=== PATIENT | male | born 1975 | race Caucasian/White ===

== ENCOUNTER 2025-02-21 16:58 | Emergency (ER) | payer OTHER, MEDICAID ==
[~2025-02-21] VITALS: Ht 182.9 cm; Wt 101.4 kg
[2025-02-21] MEDS ORDERED: ASPIRIN 81 MG CHEW PO ONE (17:15)
[2025-02-21] MEDS ORDERED: NITROGLYCERIN 0.4 MG SUBL SL PRN (17:15)
[2025-02-21 17:20] LABS: BASOPHILS 0.6 % (0.2-1.2); EOSINOPHILS 1.6 % (0.8-7.0); LYMPHOCYTES 24.0 % (21.8-53.1); MCH 27.5 PG (25.7-32.2); MCHC 32.7 g/dL (32.3-36.5); MCV 84.3 fL (79.0-92.2); MONOCYTES 8.3 % (5.3-12.2); NEUTROPHILS 65.2 % (34.0-67.9); RBC 5.59 M/uL (4.63-6.08)
[2025-02-21 17:39] LABS: ALT (SGPT) 41 U/L (14-59); AST (SGOT) 14 U/L (15-37); GLOMERULAR FILTRATION RATE,EST 113 mL/min (>60); PROTEIN, TOTAL 7.6 g/dL (6.4-8.2); UREA NITROGEN 12 mg/dL (7-18)
[2025-02-21 19:15] LABS: BLOOD/HGB, URINE NEGATIVE (Negative); KETONE, URINE NEGATIVE (Negative); LEUK ESTERASE, URINE NEGATIVE (negative); NITRITE, URINE NEGATIVE (negative)
[2025-02-21] MEDS ORDERED: FAMOTIDINE 20 MG TAB PO ONE (19:15)
[2025-02-21] MEDS ORDERED: HYDROXYZINE HCL25 MG PO ×2 (19:31→19:38)
[2025-02-21] MEDS ORDERED: PEPCID20 MG PO ×2 (19:31→19:38)
[2025-02-21] MEDS ORDERED: LISINOPRIL20 MG PO ×2 (19:31→19:38)
[2025-02-21 19:32] LABS: AMPHETAMINES, URINE NEGATIVE (NEGATIVE); BARBITURATES, URINE NEGATIVE (NEGATIVE); BENZODIAZEPINE, URINE NEGATIVE (NEGATIVE); CANNABINOID, URINE NEGATIVE (NEGATIVE); COCAINE, URINE POSITIVE (NEGATIVE); ECSTASY, URINE NEGATIVE (NEGATIVE); FENTANYL, URINE NEGATIVE (NEGATIVE); METHADONE, URINE NEGATIVE (NEGATIVE); OPIATES, URINE NEGATIVE (NEGATIVE); OXYCODONE, URINE NEGATIVE (NEGATIVE); PHENCYCLIDINE, URINE NEGATIVE (NEGATIVE)
[2025-02-21] MEDS ORDERED: METFORMIN HCL500 MG PO (19:37)
[2025-02-21 20:25] VITALS: BP 107/71
--- NOTE | 2025-02-22 06:02 | EKG ---
[facility] [address] [place] [address] Signed Normal sinus rhythm Left axis deviation Possible Anterior infarct , age undetermined Abnormal ECG No previous ECGs available Confirmed by ROXANNE GIBSON MD ([id number]) on 02/22/2025 6:02:38 AM Electronically Signed By: ROXANNE GIBSON 02/22/25 0602 PATIENT NAME: JEAN JOHNSON Electrocardiogram DATE OF : 75 PHYSICIAN: ROXANNE GIBSON REPORT #: [id number] REPORT IS CONFIDENTIAL AND NOT TO BE RELEASED WITHOUT AUTHORIZATION
== END 2025-02-21 20:28 | disposition home or self-care (01) ==
LOC: ED 16:58
PROVIDERS: Emergency Medicine; Internal Medicine
DX: K21.9 Gastro-esophageal reflux disease without esophagitis (principal); F41.9 Anxiety disorder, unspecified; E11.9 Type 2 diabetes mellitus without complications
CPT/HCPCS: 36415; 71046; 80053; 80307; 81003; 83036; 83735; 84484; 85025; 93005; 93010; 99285; A9270